=== PATIENT | male | born 1980 | race Caucasian/White ===

== ENCOUNTER 2018-05-12 09:40 | Emergency (ER) | payer MEDICAID ==
[~2018-05-12] VITALS: Ht 177.8 cm; Wt 86.2 kg
[2018-05-12 10:34] VITALS: BP 139/89
== END 2018-05-12 11:38 | disposition home or self-care (01) ==
LOC: ER 09:40
DX: J20.9 Acute bronchitis, unspecified (principal); H92.03 Otalgia, bilateral

== ENCOUNTER 2020-01-24 13:20 | Emergency (ER) | payer MEDICAID ==
[~2020-01-24] VITALS: Ht 177.8 cm; Wt 90.7 kg
[2020-01-24 15:34] VITALS: BP 122/82
== END 2020-01-24 15:35 | disposition home or self-care (01) ==
LOC: ER 13:20
DX: J20.9 Acute bronchitis, unspecified (principal); Z20.828 Contact with and (suspected) exposure to other viral communicable diseases
CPT/HCPCS: 36415; 71045; 87426